=== PATIENT | female | born 1975 | race Caucasian/White ===

== ENCOUNTER 2021-02-20 13:53 | Emergency (ER) | payer SELFPAY ==
--- NOTE | ~2021-02-20 | XR_ITS ---
EXAMINATION: XR ankle LT min 3V, XR foot LT min 3V DATE: 02/20/2021 14:34 INDICATION: Lateral left foot pain and swelling after being bumped with a cart TECHNIQUE: 1. Anteroposterior, mortise, additional oblique and lateral view of the left ankle were obtained. 2. Dorsoplantar, two oblique and lateral views of the left foot were obtained. COMPARISON: None. FINDINGS: Alignment of the left foot and ankle is normal. No fracture or osteochondral lesion. Mild osteoarthri tis at the first metatarsophalangeal joint. Remaining joint spaces appear relatively preserved. Small osteophyte along the medial malleolus. Bone island at the middle cuneiform. Soft tissues are unremar kable. No ankle joint effusion. The soft tissues are unremarkable. IMPRESSION: 1. Mild osteoarthritis at the first metatarsophalangeal joint. No acute osseous abnormality at the le ft foot or ankle. Reviewed, dictated and finalized at location A. [facility] IMPRESSION: 1. Mild osteoarthritis at the first metatarsophalangeal joint. No acute osseous abnormality at the left foot or ankle.
--- NOTE | 2021-02-20 13:57 | ED.LOWEXIN ---
HPI - Extremity Injury (Lower) General Chief Complaint: Extremity Injury, Lower Stated Complaint: Right leg injury Time Seen by Provider: 02/20/21 13:57 Source: patient and RN notes reviewed History of Present Illness HPI Narrative: Patient is a 45-year-old female who presents the urgent care with complaints of left lower leg injury. Patient states that approximately 1 month ago she was pulling a cart at work and hit the back of her left ankle. Patient states that it is consistently swollen and bruising. Patient states that she has increased pain with ambulation and flexion of the foot. Patient has been icing and elevating the foot but denies of the use of medication for pain. Patient has not been evaluated since the incident. No other acute complaints. No acute distress noted. Patient read the plan of care. Some parts of this dictation were generated by voice recognition software and may contain typographical and/or grammatical inaccuracies. Review of Systems Review of Systems: CONSTITUTIONAL: Denies fever, chills, or sweats. EYES: Denies visual changes, redness, or discharge. ENT: Denies rhinorrhea, congestion, sore throat, or otalgia. CARDIOVASCULAR: Denies chest pain, palpitations, or edema. RESPIRATORY: Denies cough or dyspnea. GASTROINTESTINAL: Denies abdominal pain, nausea, vomiting, or diarrhea. GENITOURINARY: Denies dysuria or hematuria. SKIN: Denies rash or itching. MUSCULOSKELETAL: Reports of pain and swelling to the posterior aspect of the left ankle and the left lateral foot NEUROLOGIC: Denies headache, numbness, or weakness. All other systems reviewed are negative, except as documented in HPI. PMFSH Comments At the time of my signature, I reviewed and agree with the nursing past medical, surgical, social, and family history. There is no relevant family history pertinent to the patient complaint. Exam Narrative: GENERAL: This is a well-nourished, well-developed patient, in no apparent distress. HEAD: normocephalic, atraumatic. EYES: PERRL. Sclera clear/white. Vision is grossly intact. EARS: External ears normal NOSE: External nose normal with no obvious nasal discharge, nares without redness, no rhinorrhea. THROAT: Mucous membranes moist NECK: Neck supple CARDIOVASCULAR: Regular rate and rhythm without murmurs, gallops, or rubs. RESPIRATORY: Clear to auscultation. Breath sounds equal bilaterally. No wheezes, rales, or rhonchi. SKIN: warm, intact with no suspicious lesions or rash, good texture and turgor. NEURO: awake, alert, and oriented to person, place and time. There were no obvious focal neurologic abnormalities. EXTREMITIES: Moderate ecchymosis to the posterior aspect of the left ankle near the Achilles tendon without obvious Achilles rupture. Range of motion within normal limits to left foot with exacerbated pain on flexion. 2 x 2 centimeter area of ecchymosis to the lateral aspect of the left foot. Positive strong left pedal pulse with capillary refill less than 2 seconds Course Vital Signs Vital signs: Vital Signs Temperature 99.7 F H 02/20/21 14:00 Pulse Rate 76 02/20/21 14:00 Respiratory Rate 16 02/20/21 14:00 Blood Pressure 129/77 02/20/21 14:00 Pulse Oximetry 100 02/20/21 14:00 Temperature 99.7 F H 02/20/21 14:00 Pulse Rate 76 02/20/21 14:00 Respiratory Rate 16 02/20/21 14:00 Blood Pressure 129/77 02/20/21 14:00 Pulse Oximetry 100 02/20/21 14:00 Reviewed MDM - Extremity Injury (Lower) MDM Narrative Medical decision making narrative: Reviewed x-ray results with the patient. She is aware that x-ray shows mild osteoarthritis of the right toe. Otherwise normal x-ray. No ankle effusion or notable soft tissue swelling. Advised the patient to wear an Delonte wrap and use Tylenol/ibuprofen as needed. If you have continual pain, your pain may be associated with a ligament or tendon injury and therefore will need follow-up with the orthopedic. Follow-up with the referred or
[2021-02-20 14:00] VITALS: BP 129/77; PULSE 76; RESP 16; TEMP 37.6; O2SAT 100
== END 2021-02-20 14:50 | disposition home or self-care (01) ==
PROVIDERS: Emergency Provider Nurse Practitioner Family
DX: M25.572 Pain in left ankle and joints of left foot (principal)
CPT/HCPCS: 73610; 73630; 99213; G0463

== ENCOUNTER 2021-03-17 11:00 | Emergency (ER) | payer SELFPAY ==
[2021-03-17 11:07] VITALS: BP 131/89; PULSE 69; RESP 16; TEMP 38.1; O2SAT 100
--- NOTE | 2021-03-17 11:07 | ED.LOWEXIN ---
HPI - Extremity Injury (Lower) General Chief Complaint: Extremity Injury, Lower Stated Complaint: Left foot pinkie toe pain Time Seen by Provider: 03/17/21 11:07 Source: patient and RN notes reviewed History of Present Illness HPI Narrative: Patient is a 45-year-old female who presents the urgent care with complaints of left pinky toe pain and swelling. Patient states she noticed it approximately 2 weeks ago and has became more painful and bruised. Patient denies of any known injury. States that she has been taking ibuprofen for the pain. No other acute complaints. No acute distress noted. Patient read the plan of care. Some parts of this dictation were generated by voice recognition software and may contain typographical and/or grammatical inaccuracies. Related Data Allergies Allergy/AdvReac Type Severity Reaction Status Date / Time No Known Allergies Allergy Verified 03/17/21 11:10 Review of Systems Review of Systems: CONSTITUTIONAL: Denies fever, chills, or sweats. EYES: Denies visual changes, redness, or discharge. ENT: Denies rhinorrhea, congestion, sore throat, or otalgia. CARDIOVASCULAR: Denies chest pain, palpitations, or edema. RESPIRATORY: Denies cough or dyspnea. GASTROINTESTINAL: Denies abdominal pain, nausea, vomiting, or diarrhea. GENITOURINARY: Denies dysuria or hematuria. SKIN: Denies rash or itching. MUSCULOSKELETAL: Reports of pain and bruising to the left small toe NEUROLOGIC: Denies headache, numbness, or weakness. All other systems reviewed are negative, except as documented in HPI. PMFSH Comments At the time of my signature, I reviewed and agree with the nursing past medical, surgical, social, and family history. There is no relevant family history pertinent to the patient complaint. Exam Narrative: GENERAL: This is a well-nourished, well-developed patient, in no apparent distress. HEAD: normocephalic, atraumatic. EYES: PERRL. Sclera clear/white. Vision is grossly intact. EARS: External ears normal NOSE: External nose normal with no obvious nasal discharge, nares without redness, no rhinorrhea. THROAT: Mucous membranes moist NECK: Neck supple CARDIOVASCULAR: Regular rate and rhythm without murmurs, gallops, or rubs. SKIN: Blanching ecchymotic region to the dorsal lateral aspect of the left fifth digit with likely fungal infection. Warm, intact with no suspicious lesions or rash, good texture and turgor. NEURO: awake, alert, and oriented to person, place and time. There were no obvious focal neurologic abnormalities. EXTREMITIES: Positive strong left pedal pulse with capillary refill less than 2 seconds. Range of motion to left left lower extremity. Moderate ecchymosis and tenderness to the dorsal and medial aspect of the left fifth toe Course Vital Signs Vital signs: Vital Signs Temperature 100.5 F H 03/17/21 11:07 Pulse Rate 69 03/17/21 11:07 Respiratory Rate 16 03/17/21 11:07 Blood Pressure 131/89 03/17/21 11:07 Pulse Oximetry 100 03/17/21 11:07 Temperature 100.5 F H 03/17/21 11:16 Pulse Rate 69 03/17/21 11:16 Respiratory Rate 16 03/17/21 11:16 Blood Pressure 131/89 03/17/21 11:16 Pulse Oximetry 100 03/17/21 11:16 Reviewed MDM - Extremity Injury (Lower) MDM Narrative Medical decision making narrative: Advised the patient to keep a shoe off as much as possible. Wrapped the toe with gauze to keep it dry. Use the prescription cream to the affected area as directed. Complete the oral antibiotic regimen as prescribed. It may take some time for the bruising to resolve. If you develop any increase in pain associated with numbness to the toe?go to the emergency room. Follow-up with the referred it help desk associate for reevaluation. Follow-up with your PCP within 2 to 5 days or for worsening symptoms or failure to improve. Differential Diagnosis Differential diagnosis: Likely ankle sprain and strain, acute internal derangement of knee, puncture wound of foot and fracture
[2021-03-17 11:16] VITALS: BP 131/89; PULSE 69; RESP 16; TEMP 38.1; O2SAT 100
== END 2021-03-17 11:25 | disposition home or self-care (01) ==
PROVIDERS: Emergency Provider Nurse Practitioner Family
DX: M79.675 Pain in left toe(s) (principal); Z86.16 Personal history of COVID-19
CPT/HCPCS: 99213; G0463